=== PATIENT | female | born 1980 ===

== ENCOUNTER 2019-04-18 13:59 | Emergency (ER) | payer SELFPAY ==
[~2019-04-18] VITALS: Ht 154.9 cm; Wt 72.6 kg
[2019-04-18 14:07] VITALS: Ht 154.9 cm; Wt 72.6 kg
[2019-04-18 14:24] LABS: BASOPHIL % 0.6 % (0-2); PLATELET COUNT 322 x10^3mcL (130-400); RED CELL DISTRIBUTION WIDTH 12.6 % (11.5-14.5)
[2019-04-18 14:32] LABS: CALCIUM 8.9 mg/dL (8.5-10.1); CARBON DIOXIDE 25.4 mmol/L (21-32); CHLORIDE SERUM 105 mmol/L (98-107); CREATININE SERUM 0.6 mg/dL (0.6-1.0); GFR1 > 60 mL/min; GLUCOSE SERUM 86 mg/dL (74-106); POTASSIUM SERUM 4.1 mmol/L (3.5-5.1); SODIUM SERUM 141 mmol/L (136-145)
[2019-04-18 14:37] LABS: ALKALINE PHOSPHATASE 94 U/L (46-116); ALT/SGPT 24 U/L (14-59); AST/SGOT 17 U/L (15-37); BILIRUBIN TOTAL 0.2 mg/dL (0.20-1.00); TOTAL PROTEIN, SERUM 8.3 g/dL (6.4-8.2)
[2019-04-18 20:27] VITALS: BP 122/84
== END 2019-04-18 20:27 | disposition home or self-care (01) ==
LOC: ED 13:59
DX: R10.31 Right lower quadrant pain (principal); R11.0 Nausea; Z98.890 Other specified postprocedural states
CPT/HCPCS: 36415; J1885